=== PATIENT | male | born 1980 | race Caucasian/White ===

== ENCOUNTER → 2020-11-24 08:24 | Outpatient (CLI) | payer BC, SELFPAY ==
[2020-11-24 09:28] LABS: Chloride 104 mmol/L (98-107)
[2020-11-24 09:29] LABS: Potassium 4.7 mmoL/L (3.5-5.1); Sodium 137 mmol/L (136-145)
[2020-11-24 09:31] LABS: Alanine Aminotransferase 31 U/L (12-78); Alkaline Phosphatase 79 U/L (38-126); Anion Gap 12.7 mEq/L (5-15); Aspartate Amino Transferase 26 U/L (17-59); Bilirubin,Total 0.3 mg/dl (0.2-1.3); Blood Urea Nitrogen 17 mg/dl (9-20); Carbon Dioxide 25 mmol/L (22.0-30.0); Cholesterol 262 mg/dl (140-200); Estimated Glomerular Filt Rate 93 ml/min (>60); GFR (African American) 112 ML/MIN (>60); Triglycerides 190 mg/dl (30-150); VLDL Cholesterol 38 mg/dL (0-40)
[2020-11-24 09:32] LABS: Albumin Level 4.5 g/dl (3.5-5.0); Albumin/Globulin Ratio 1.7 (1.1-1.8); Calcium 9.6 mg/dl (8.4-10.2); Chol/HDL Ratio 7.3 (1-3.5); Globulin 2.7 g/dL (1.3-3.2); Glucose 107 mg/dl (74-100); HDL Cholesterol 36 mg/dl (40-60); Total Protein,Serum 7.2 g/dl (6.3-8.2)
[2020-11-24 09:44] LABS: Direct LDL Cholesterol 190.01 mg/dL (100-129)
== END ==
PROVIDERS: Visit Provider Family Medicine
DX: I10 Essential (primary) hypertension (principal); E78.5 Hyperlipidemia, unspecified
CPT/HCPCS: 36415; 80053; 80061

== ENCOUNTER → 2021-12-11 10:16 | Outpatient (CLI) | payer BC, SELFPAY ==
[2021-12-11 11:16] LABS: Chloride 104 mmol/L (98-107); Potassium 4.6 mmoL/L (3.5-5.1); Sodium 138 mmol/L (136-145)
[2021-12-11 11:18] LABS: Alanine Aminotransferase 30 U/L (12-78); Aspartate Amino Transferase 30 U/L (17-59); Blood Urea Nitrogen 11 mg/dl (9-20); Estimated Glomerular Filt Rate 106 ml/min (>60); GFR (African American) 128 ML/MIN (>60)
[2021-12-11 11:19] LABS: Albumin Level 4.5 g/dl (3.5-5.0); Albumin/Globulin Ratio 1.7 (1.1-1.8); Alkaline Phosphatase 74 U/L (38-126); Anion Gap 13.6 mEq/L (5-15); Bilirubin,Total 0.4 mg/dl (0.2-1.3); Calcium 9.9 mg/dl (8.4-10.2); Carbon Dioxide 25 mmol/L (22.0-30.0); Cholesterol 270 mg/dl (140-200); Globulin 2.6 g/dL (1.3-3.2); Glucose 104 mg/dl (74-100); HDL Cholesterol 34 mg/dl (40-60); Total Protein,Serum 7.1 g/dl (6.3-8.2); Triglycerides 249 mg/dl (30-150); VLDL Cholesterol 50 mg/dL (0-40)
[2021-12-11 11:27] LABS: Chol/HDL Ratio 7.9 (1-3.5)
[2021-12-11 11:30] LABS: Direct LDL Cholesterol 203.78 mg/dL (100-129)
== END ==
PROVIDERS: PCP Family Medicine; Visit Provider Family Medicine
DX: I10 Essential (primary) hypertension (principal); E78.5 Hyperlipidemia, unspecified
CPT/HCPCS: 36415; 80053; 80061

== ENCOUNTER → 2022-09-17 13:50 | Outpatient (CLI) | payer BC, SELFPAY ==
[2022-09-17 15:09] LABS: Alanine Aminotransferase 41 U/L (12-78); Albumin Level 4.9 g/dl (3.5-5.0); Albumin/Globulin Ratio 1.8 (1.1-1.8); Alkaline Phosphatase 67 U/L (38-126); Anion Gap 10.7 mEq/L (5-15); Aspartate Amino Transferase 40 U/L (17-59); Bilirubin,Total 0.7 mg/dl (0.2-1.3); Blood Urea Nitrogen 13 mg/dl (9-20); Calcium 9.4 mg/dl (8.4-10.2); Carbon Dioxide 29 mmol/L (22.0-30.0); Chloride 100 mmol/L (98-107); Chol/HDL Ratio 8.6 (1-3.5); Cholesterol 309 mg/dl (140-200); Estimated Glomerular Filt Rate 92 ml/min (>60); GFR (African American) 111 ML/MIN (>60); Globulin 2.7 g/dL (1.3-3.2); Glucose 90 mg/dl (74-100); HDL Cholesterol 36 mg/dl (40-60); Potassium 4.7 mmoL/L (3.5-5.1); Sodium 135 mmol/L (136-145); Total Protein,Serum 7.6 g/dl (6.3-8.2); Triglycerides 270 mg/dl (30-150); VLDL Cholesterol 54 mg/dL (0-40)
[2022-09-17 15:19] LABS: Direct LDL Cholesterol 223.43 mg/dL (100-129)
== END ==
PROVIDERS: PCP Family Medicine; Visit Provider Family Medicine
DX: I10 Essential (primary) hypertension (principal); E87.5 Hyperkalemia
CPT/HCPCS: 36415; 80053; 80061

== ENCOUNTER 2024-09-30 10:03 | Emergency (ER) | payer BC, SELFPAY ==
[2024-09-30 10:11] VITALS: BP 114/76; PULSE 73; RESP 18; TEMP 36.5; O2SAT 99; BMI 33.0
--- NOTE | 2024-09-30 10:27 | XR_ITS ---
PROCEDURE INFORMATION: Exam: XR Left Foot Exam date and time: 09/30/2024 10:43 AM Age: 44 years old Clinical indication: Swelling, leg or foot; Additional info: Swelling, pain, left 5th toe TECHNIQUE: Imaging protocol: Radiologic exam of the left foot. Views: 1 or 2 views. COMPARISON: No relevant prior studies available. FINDINGS: Bones/joints: There is no evidence of acute fracture.There is no evidence of malalignment or dislocation. Soft tissues: Normal. IMPRESSION: There is no evidence of acute fracture.There is no evidence of malalignment or dislocation.
[2024-09-30 10:30] VITALS: BP 93/63; PULSE 66; O2SAT 99
[2024-09-30 11:00] VITALS: BP 102/60; PULSE 60; O2SAT 99
--- NOTE | 2024-09-30 11:06 | PC.NURSE ---
I rounded on the pt. no new complaints at this time. no needs voiced. declined a blanket or beverage. call gardner in reach.
--- NOTE | 2024-09-30 11:18 | HMH.EDGENADL ---
Discharge Plan Disposition Patient Disposition: Home, Self-Care Condition: Good Prescriptions Prescriptions: New cephalexin 500 mg capsule 500 mg PO QID 7 Days Qty: 28 0RF Referrals Follow up/Referrals: Arnoldo Burns MD [Primary Care Provider] - See instructions Activity Restrictions/Add. Instructions Additional Instructions/Restrictions: You have an infection in the soft tissue of the foot. Take the antibiotic as prescribed. You can take Tylenol and ibuprofen to help with pain. If you develop any new or worsening symptoms, such as fever, increased redness or swelling, pus draining from the wound, or if you become concerned for your health for any reason, return to the emergency department for evaluation. Otherwise, follow-up with your primary care physician. Clinical Impressions Clinical Impression: Cellulitis of foot, left Print Language Print Language: Trinidadian Discharge ED Provider: Cosme Damon Adult HPI General Chief complaint: Extremity Problem,Nontraumatic Stated complaint: place on top of left foot Time Seen by Provider: 09/30/24 10:21 Mode of Arrival: Ambulatory Source of Information: Patient Description of Symptoms (Recalled from ER Triage Doc. by RN): left foot pain. top of foot between fourth and fifth toe is reddened and inflamed. History of Present Illness HPI narrative: Sam Gutiérrez is a 44y male with no significant past medical history who presents to the emergency department for complaints of pain, redness and swelling to his left foot. Patient states that he wears work boots and over the last several days, he has had increased redness and swelling to the lateral aspect of his left forefoot near the pinky toe that is making it difficult for him to walk. He denies any fevers but notes some swelling in this area. He states that he noticed a cut between his big toes prior to this starting and thinks that that may have introduced infection. Related Data Previous Rx's ?Medication ?Instructions ?Recorded cephalexin 500 mg capsule 500 mg PO QID 7 days #28 caps 09/30/24 Allergies Allergy/AdvReac Type Severity Reaction Status Date / Time No Known Allergies Allergy Unverified 07/05/17 14:35 [facility] Disclaimer: The information contained in this section may have been updated after the patient was seen, as this information can be updated by other users. Social History Smoking Status: Current every day smoker alcohol intake: never current occupational status: employed Travel in the last 8 weeks: None ROS Obtained: Yes Systems reviewed as appropriate & no additional complaints except as documented Physical Exam General General appearance: alert and in no apparent distress Head Head exam: atraumatic Eye Eye exam: Present normal appearance ENT ENT exam: Present normal external ear exam Neck Neck exam: Present full ROM Chest Chest inspection: Present symmetric chest wall rise Respiratory Respiratory exam: Present normal lung sounds bilaterally; Absent respiratory distress Cardiovascular Cardiovascular exam: Present regular rate and normal rhythm Abdominal Exam Abdominal exam: Present soft; Absent tenderness or guarding exam: Present deferred Extremities Exam Extremities exam: Present normal inspection Expanded Lower Extremity Exam Left: Comment: LLE: swelling, erythema to the left dorsal foot without fluctuance or pitting edema. No lacerations or open wounds. Back Exam Back exam: Present normal inspection Neurological Exam Neurological exam: Present alert and oriented X3 Psychiatric Psychiatric exam: Present normal affect Skin Skin exam: Present warm and dry Medical Decision Making Medical Records Screening: Per USPSTF and CDC recommendations, given the prevalence of disease in our region, it is our hospital?s policy to screen for HIV and viral Hepatitis for all patients aged 18 and over and those with ongoing risk factors. Delio Inquiry Pt receiving controlled substance: No Vital Signs: 09/30/24 10:11 09/30/24 10:30 09/30/24 11:00 Temperature 97.7 F Temperature Source Oral Pulse Rate 66 60 Pulse Rate [Right] 73 Respiratory Rate 18 Blood Pressure 93/63 L 102/60 L Blood Pressure [Right Arm] 114/76 Blood Pressure Mean [Right Arm] 88 02 Sat by Pulse Oximetry 99 99 99 Oxygen Delivery Method Room Air Room Air Room Air 09/30/24 11:30 09/30/24 12:25 Temperature 97.7 F Temperature Source Pulse Rate 60 65 Pulse Rate [Right] Respiratory Rate 16 Blood Pressure 113/78 115/66 Blood Pressure [Right Arm] Blood Pressure Mean [Right Arm] 02 Sat by Pulse Oximetry 98 Oxygen Delivery Method Room Air Room Air Orders (Tests/Meds): ORDERS Category Date Time Status Foot XR left 2 views [XR foot LT 2V] Stat Exams 09/30/24 10:27 Completed POCUS Point of Care (ER Only) Stat Exams 09/30/24 10:27 Taken Medical Decision Narrative: Sam Gutiérrez is a 44y male with no significant past medical history who presents to the emergency department for complaints of pain, redness and swelling to his left foot. Patient states that he wears work boots and over the last several days, he has had increased redness and swelling to the lateral aspect of his left forefoot near the pinky toe that is making it difficult for him to walk. He denies any fevers but notes some swelling in this area. He states that he noticed a cut between his big toes prior to this starting and thinks that that may have introduced infection. On arrival, patient is normotensive, afebrile, breathing comfortably on room air, heart rate within normal limits. Physical exam, stated above, revealed erythema, mild swelling to the dorsum of the left foot near the base of the fifth toe. Neurovascular intact distally. No open wounds are present. Differential diagnosis includes, but is not limited to: Cellulitis, abscess, osteomyelitis, among others. Workup included: Left foot xray, POCUS soft tissue Left foot xray interpreted by me personally. No fracture. No bony degradation or concern for osteomyelitis. See radiology report for details. [id number] ultrasound as below demonstrated no abscess but did show cobblestoning concerning for cellulitis. Given this, will treat the patient with Keflex for treatment of his cellulitis. He was instructed to follow-up with his primary care physician or to return to the emergency department for any worsening symptoms. All questions were answered. He demonstrated understanding and was in agreement this plan. He was then discharged from the emergency department in stable condition. Limited MSK/soft tissue ultrasound Indication: Soft tissue swelling and redness Identified structures: Location: Left foot Findings: No abscess -Cellulitis present with cobblestoning in the soft tissue No subcutaneous air or foreign bodies Impression: Cellulitis of soft tissue Images [were saved] to permanent archive The study [was] technically adequate Soft Tissue CPT Codes: CPT Lower Extremity: 95768-60 This study was performed by me, and I personally interpreted all images/videos. Based on my clinical judgement, these images were [adequate/inadequate] and [did/did not] necessitate further imaging. Critical Care Critical Care Time Critical Care Time: No
[2024-09-30 11:30] VITALS: BP 113/78; PULSE 60; O2SAT 98
[2024-09-30 12:25] VITALS: BP 115/66; PULSE 65; RESP 16; TEMP 36.5; O2SAT 97
== END 2024-09-30 12:26 | disposition home or self-care (01) ==
PROVIDERS: Emergency Provider Student in an Organized Health Care Education/Training Program; PCP Family Medicine
DX: L03.116 Cellulitis of left lower limb (principal)
CPT/HCPCS: 73620; 99283